=== PATIENT | male | born 1960 | race Caucasian/White ===

== ENCOUNTER → 2021-06-25 | Outpatient (CLI) | payer MEDICARE ==
[~2021-06-25] MED LIST: ACET5SOL PO; ALBU8.5H6 IH; D-ME1CAP PO; HYDR-2765 PO; LISI-130 PO
--- NOTE | 2021-06-25 10:53 | KCIC ---
Complete abdominal ultrasound 06/25/2021 INDICATION: Abdominal pain COMPARISON STUDY: None Discussion: Ultrasound evaluation of the abdomen was performed. Static images are submitted to PACS. Visualized portions of the pancreas are unremarkable. Visualized portions of the aorta and IVC are un remarkable. The liver is top normal in size measuring 17 cm longitudinally. Hepatic echotexture is no rmal. No focal hepatic lesions are identified. No intrahepatic biliary dilatation is seen. Portal shila ous flow appears to be in the normal direction. The common bile duct is nondilated at 1 to 2 mm. Chol elithiasis is noted with a shadowing stone noted in the dependent portion of the gallbladder. There i s no gallbladder wall thickening or pericholecystic fluid. The right kidney is unremarkable in appear ance measuring 12.3 cm longitudinally. The spleen is normal in size measuring 10 cm longitudinally. T he left kidney is normal in appearance measuring 11.4 cm longitudinally. IMPRESSION: 1. Cholelithiasis without evidence of cholecystitis 2. Otherwise unremarkable abdominal ultrasound Electronically signed by: Umesh Martines MD (06/25/2021 10:51 AM) [id number]
== END ==
LOC: KCIC US 09:29
PROVIDERS: ATTEND Family Medicine
DX: K80.20 Calculus of gallbladder without cholecystitis without obstruction (principal)
CPT/HCPCS: 76700

== ENCOUNTER → 2021-08-22 | Outpatient (CLI) | payer MEDICARE ==
--- NOTE | 2021-08-22 17:19 | KCIC ---
DXA BONE DENSITY AXIAL, DXA BONE DENSITY AXIAL History: Reason: OSTEOPOROSIS, NON UNION HARDWARE FAILURE / Spl. Instructions: / History: Comparison: None. TECHNIQUE: Dual energy x-ray absorptiometry of the left forearm and left hip was performed. T-score o f average bone mineral density based was calculated based on standard deviations above or below the e xpected young adult normal value. Diagnostic definitions were established by the [employer] at[employer]. FINDINGS: The total bone mineral density of the right forearm 0.614 g/cm^2, corresponding with a T-sc ore of -1.2. The average total bone mineral density associated with left hip is 1.033 g/cm^2, corresponding with a T-score of 0. Refer to the worksheets for full detail. IMPRESSION: 1. Osteopenia. Average bone mineral density yields a T-score between -1.0 and -2.5. Fracture risk is increased. Electronically signed by: Brandyn Bryan DO (08/22/2021 5:16 PM) [id number]
== END ==
LOC: KCIC DEXA 12:33
PROVIDERS: ATTEND Internal Medicine Gastroenterology
DX: M85.88 Other specified disorders of bone density and structure, other site (principal); M81.0 Age-related osteoporosis without current pathological fracture; Z79.83 Long term (current) use of bisphosphonates
CPT/HCPCS: 77080; 77081